=== PATIENT | female | born 1950 | race Caucasian/White ===

== ENCOUNTER → 2016-07-18 | Outpatient (CLI) | payer OTHER ==
--- NOTE | 2016-07-18 09:50 | MRI ---
Examination: MRI of the cervical spine Clinical History: Cervical radiculopathy. Technique: Multiple sequences were obtained in the sagittal and axial planes. Comparison: None available. Findings: The cervical spine was imaged from the skull base to the level of T4. The visualized portion of the skull base is unremarkable. The spinal cord is normal in appearance, w ith no signal change or mass lesion noted. The vertebral body alignment is within normal limits. There is narrowing of the C5-C6 and C6-C7 intervertebral disk spaces. Signal changes are noted withi n the intervertebral disks at all levels in the cervical spine, consistent with disk desiccation. Minor acute degenerative endplate signal changes are noted at the C6-C7 level. No paraspinal abnormality is noted. C2-C3: Unremarkable. C3-C4: Unremarkable. C4-C5: Broad-based disc osteophytic complex formation is noted, encroaching on the ventral aspect of the thecal sac and causing mild right-sided neural foraminal narrowing, moderate left-sided neural foraminal narrowing and mild moderate central canal stenosis. C5-C6: Broad-based disc osteophytic complex formation is noted somewhat eccentric to the left, encro aching on the ventral aspect of the thecal sac and causing mild right-sided neural foraminal narrowi ng, moderate to severe left-sided neural foraminal narrowing and mild central canal stenosis. C6-C7: Broad-based disc osteophytic complex formation is noted, encroaching on the ventral aspect of the thecal sac and causing mild moderate bilateral neural foraminal narrowing and mild central juan antonio l stenosis. C7-T1: Unremarkable. Impression: 1. Multilevel disk degenerative changes resulting in neural foraminal narrowing and central canal st enosis, as described above. Reported By:
== END | disposition home or self-care (01) | DRG 552 ==
LOC: RAD 08:17
PROVIDERS: ATTEND Nurse Practitioner Family
DX: M54.2 Cervicalgia (principal); M54.12 Radiculopathy, cervical region
CPT/HCPCS: 72141

== ENCOUNTER → 2016-10-24 | Outpatient (CLI) | payer OTHER ==
--- NOTE | 2016-10-24 13:33 | US ---
HISTORY: Back pain, chronic UTIs Study: Bilateral renal sonogram Comparison: None Technique: Multiple grayscale sonographic images were obtained peer E Findings: The right kidney measured 9 x 4 x 4.7 centimeters. The left kidney measured 8 x 4.5 x 4.6 centimeter s. Cortical thickness and cortical echogenicity were normal bilaterally. No solid masses, hydronephr osis, stones, or perinephric fluid collections were identified. Multiple small benign cysts are pres ent on the right. IMPRESSION: No significant abnormality identified Reported By:
== END ==
LOC: RAD 12:50
PROVIDERS: ATTEND Neurological Surgery
DX: N28.1 Cyst of kidney, acquired (principal)
CPT/HCPCS: 76770

== ENCOUNTER → 2016-12-06 | Outpatient (CLI) | payer OTHER ==
--- NOTE | 2016-12-07 07:57 | RAD ---
HISTORY: Right-sided rib pain. No history of injury or trauma. Study: Four view right ribs with AP chest Comparison: No priors Findings: Nondisplaced fractures involving right anterior 4th and 6th ribs. Remainder of osseous structures are intact. There is no evidence of lung contusion, pleural fluid or pneumothorax. The trachea is midlin e. Heart size is upper normal with aortic uncoiling. IMPRESSION: Nondisplaced, closed fractures involving the right anterior 4th and 6th ribs. Hypertensive configuration. Reported By:
== END | disposition home or self-care (01) ==
LOC: RAD 11:25
PROVIDERS: ATTEND Nurse Practitioner Family
DX: R07.81 Pleurodynia (principal); S22.41XA Multiple fractures of ribs, right side, initial encounter for closed fracture; X58.XXXA Exposure to other specified factors, initial encounter
CPT/HCPCS: 71111

== ENCOUNTER → 2017-05-09 | Outpatient (CLI) | payer OTHER ==
--- NOTE | 2017-05-09 14:27 | RAD ---
HISTORY: Pain Study: Four views of the chest Comparison: 12/06/2016 Findings: The lungs are clear without consolidation, effusion or pneumothorax. The cardiac and mediastinal con tours are within normal limits. There is a focal area of sclerosis involving the lateral left 6th rib with subtle cortical irregulari ty. This could represent a subacute fracture. The remaining ribs are intact. The bony thorax appears intact. IMPRESSION: 1. Focal area of sclerosis along the left lateral 6th rib, possibly a nondisplaced subacute fracture . Correlation with point tenderness recommended. The ribcage is otherwise intact. 2. No acute cardiopulmonary abnormality. Reported By:
== END | disposition home or self-care (01) ==
LOC: RAD 10:50
PROVIDERS: ATTEND Nurse Practitioner Family
DX: R07.81 Pleurodynia (principal); S22.41XA Multiple fractures of ribs, right side, initial encounter for closed fracture; X58.XXXA Exposure to other specified factors, initial encounter
CPT/HCPCS: 71111

== ENCOUNTER 2017-05-12 12:24 | Emergency (ER) | payer OTHER ==
[2017-05-12 12:31] VITALS: BMI 27.4
[2017-05-12 12:32] VITALS: BP 160/71
--- NOTE | 2017-05-12 12:46 | DR.GENAD ---
HPI - PCP Primary Care Physician: Atul PELAEZ - HPI Comment HPI Comment: HISTORY BELOW. - Complaint/Symptoms Chief Complaint Doctors Comments: CHEST PAIN LEFT LOWER CHEST POSTERIOR AREA MAINLY NOTED AFTER CHIROPRACTOR MANUPULATED THE CHEST FEW DAYS AGO. NO SOB. PAIN RIB AREA ON PALPATION. NO FEVER. Chief Complaint:: PT. C/O LEFT SIDED CHEST PAIN/RIB PAIN. PT. STATES SHE HAS BACK ISSUES AND WENT TO SEE THE CHIROPRACTOR LAST SATURDAY AND HE DONE SOMETHING DIFFERENT TO HER AND SHE IMMEDIATELY FELT THE PAIN IN HER CHEST/RIBS. PT. DESCRIBES IT "SOMETHING FEELS LIKE IT KEEPS SLIPPING IN THERE." - Nurses notes reviewed Nurses Notes Review: Yes - Source History Provided: Patient - Mode of Arrival Mode of Arrival: Ambulatory - Timing Onset of Chief Complaint: 05/06/17 Came on: Suddenly - Duration Duration: Constant Duration: Days - Severity Severity: Moderate PMH - PMH Past Medical History: Yes Past Medical History Comment: OSTEOPOROSIS, CREST SYNDROME, SCLEDERMA, LEAKING HEART VALVES (3) Past Surgical History: Yes Surgical History: Appendectomy, Hysterectomy, Other Past Surgical History Comment: FOOT, CATARACTS, DEVIATED SEPTUM REPAIR, LUMPECTOMY (LEFT BREAST) - Family History History of Family Medical Conditions: No - Social History Does patient currently use any type of tobacco product: No Have you used tobacco products in the last 12 months: No Type of Tobacco Use: None Does any household member use tobacco: No Alcohol Use: None Do you use any recreational Drugs:: No Lives With: Spouse Lives Where: Home - infectious screening In the last 2 months have you had wt loss of >10#?: NO Have you had fever, night sweats or hemotysis?: No Have you traveled outside the country in the last 6 months?: No Isolation: Standard ROS - Review of Systems Constitutional: No Symptoms Reported Eyes: No Symptoms Reported ENTM: No Symptoms Reported Respiratoy: No Symptoms Reported Cardiovascular: Chest Pain (CHEST WALL PAIN, LT RIB) Gastrointestinal/Abdominal: No Symptoms Reported Genitourinary: No Symptoms Reported Neurological: No Symptoms Reported Musculoskeletal: Chest wall, Rib(s) Integumentary: No Symptoms Reported Hematologic/Lymphatic: No Symptoms Reported Endocrine: No Symptoms Reported All Other Systems: Reviewed and Negative PE - Vital Signs Vitals: Temperature 99 F Pulse Rate 59 Respiratory Rate 18 Blood Pressure 160/71 O2 Sat by Pulse Oximetry 99 - General Limitations: No Limitations General Appearance: Alert - Head Head Exam: Normal Inspection - Eyes Eye exam: Normal Appearance - ENT ENT Exam: Normal External Ear Exam External Ear Exam: Normal External Inspection TM/Canal Exam: Bilateral Normal Nose Exam: Normal Nose Exam Mouth Exam: Normal Inspection Throat Exam: Normal Inspection - Neck Neck Exam: Trachea Midline - Chest Chest Inspection: Symmetric Chest Wall Rise - Respiratory Respiratory Exam: Normal Lung Sounds Bilat, Chest Wall Tenderness (RT LOWER RIB TENDERNESS.) Respiratory Exam: Bilateral Clear to Auscultation - Cardiovascular Cardiovascular Exam: Regular Rate, Normal Rhythm, Normal Heart Sounds - Abdominal Exam Abdominal Exam: Normal Bowel Sounds, Soft. negative: Tenderness - Extremities Extremities Exam: Normal Inspection - Back Back Exam: Normal Inspection - Neurologic Neurological Exam: Alert, Oriented X3 - Psychiatric Psychiatric Exam: Normal Affect, Normal Mood - Skin Skin Exam: Normal Color MDM - Additional Information Additional Information Obtained From: Family - Differential Diagnosis Differential Diagnosis: CHEST WALL PAIN, LT RIB PAIN Course - Treatment Treatment: SEE ORDERS. IM MED FOR PAIN IN ED. - Reevaluation 1st: Improved - Education/Counseling Education/Counseling: Patient, Family, Education Educated On: Treatment, Diagnosis, Needs for Follow Up ROR - XRAY XRAY Interpreted by: Radiologist XRAY Findings: REPORT DISCUSS WITH PATIENT. - Diagnosis Discharge Problem: Rib contusion Qualifiers: Encounter type: initial encounter Laterality: left Qualified Code(s): S20.212A - Contusion of left front wall of thorax, initial encounter - Discharge Plan Disposition: 01 HOME, SELF-CARE Condition: Stable - Follow ups/Referrals Follow ups/Referrals: DEMIAN PELAEZ [Primary Care Provider] - 3 days - Instructions Instructions: Rib Contusion Additional Instructions: RETURN TO ED IF WORSE. YOU ALSO HAVE CHEST WALL PAIN. CONTINUE WITH PAIN AT HOME.
[2017-05-12] MEDS ORDERED: TORADOL 60 MG VIAL IM ONE (13:05)
[2017-05-12] MEDS ORDERED: TORADOL 60 MG VIAL ONE (13:06)
--- NOTE | 2017-05-12 14:31 | CT ---
HISTORY: Chest pain status post trauma Study: CT chest without contrast Comparison: None Technique: Multiple axial images of the chest were obtained from the thoracic inlet to the upper abdo men after the administration of IV contrast. Evaluation in the setting of trauma is extremely limited without the benefit of IV contrast. Findings: The mediastinum does not demonstrate significant pathological lymphadenopathy. There is no paracardi al effusion observed. The thoracic aorta is normal in its contour without evidence for aneurysmal di latation. Evaluation of the lung parenchyma fails to demonstrate focal consolidation or effusion. No pulmonary nodule or mass can be identified. The bony thorax is unremarkable in its appearance. The visualize d portions of the upper abdomen are grossly unremarkable. IMPRESSION: Unremarkable CT of the chest without contrast. Reported By:
== END 2017-05-12 15:23 | disposition home or self-care (01) ==
LOC: ER 12:38
DX: S20.212A Contusion of left front wall of thorax, initial encounter (principal); X58.XXXA Exposure to other specified factors, initial encounter; Y92.9 Unspecified place or not applicable
CPT/HCPCS: 71250; 96372; 99282; 99284; J1885